=== PATIENT | female | born 1995 | race African-American/Black ===

== ENCOUNTER 2019-02-04 08:09 | Emergency (ER) | payer OTHER ==
[2019-02-04] MEDS ORDERED: LACTATED RINGERS SOLUTION 1000 ML INFUS.BAG IV ONE (08:54)
[2019-02-04] MEDS ORDERED: ONDANSETRON 4 MG/2 ML VIAL IVPUSH ONE (09:13)
[2019-02-04] MEDS ORDERED: FAMOTIDINE 20 MG/50 ML IVPB 20 MG/50 ML MG IVPB ONE ×2 (09:14→09:25)
[2019-02-04] MEDS ORDERED: ACETAMINOPHEN 325 MG TABLET (FP) PO ONE (09:15)
[2019-02-04] MEDS ORDERED: ONDANSETRON 4 MG/2 ML VIAL ONE (09:24)
[2019-02-04] MEDS ORDERED: ACETAMINOPHEN 325 MG TABLET (FP) ONE (09:24)
[2019-02-04 09:34] LABS: BASO % 0.1 % (0-2.0); EOS % 0.2 % (0-4.5); HEMATOCRIT 41.3 % (32.4-45.2); LYMPH % 2.5 % (8-40); MCH 25.5 pg (25.7-33.7); MCHC 31.6 g/dl (32.0-36.0); MEAN CELL VOLUME 80.9 fl (80-96); NEUT % 93.2 % (42.8-82.8); PLATELET COUNT 176 K/MM3 (134-434); RDW 14.7 % (11.6-15.6); WHITE BLOOD COUNT 11.2 K/mm3 (4.0-10.0)
--- NOTE | 2019-02-04 09:49 | PDOC ---
History of Present Illness <Lashell James - Last Filed: 02/04/19 09:52> - General History Source: Patient Exam Limitations: No Limitations - History of Present Illness Initial Comments: HPI: 23 y/o female presenting to [facility] ER complaining of upper abdominal pain with nausea, vomiting, and diarrhea since approx. 1 am this morning. Pt reports the pain starts in the epigastric region and radiates diffusely throughout the abdomen and to her R and L flanks. Multiple episodes of nonbloody emesis and nonbloody loose stools (similar to soft serve ice cream) with chills and diaphoresis. Denies dysuria, hematuria, or vaginal discharge. No sick contacts, recent travel, or recent antibiotic usage. H/o similar symptoms while traveling out of the country in [place]. Seen by a resort clinic. Treated symptomatically without imaging studies. Now undergoing outpatient GI workup by Dr. Martinez. Scheduled for U/S tomorrow and an EGD on 12 Feb 2019. LMP: 17 Jan 2019 Medical Hx: - Pt denies past medical history Surgical Hx: - Pt denies past surgical history Review of Systems: In addition to that documented in the HPI above, the additional ROS was obtained : Constitutional- Endorses chills. Denies fevers Head- Denies vision changes ENMT- Denies sore throat CV- Denies chest pain Resp- Denies SOB GI- Per HPI - Denies painful urination, hematuria, or vaginal discharge MSK- Denies recent trauma Skin- Denies new rashes Neuro- Denies new numbness or tingling or weakness Endocrine- Denies polyuria Heme- Denies bleeding or bruising Physical Examination: Vital signs and nursing notes reviewed. Constitutional- Well-developed, well-nourished adult female in no acute distress or obvious discomfort. Found semi-fowlers on hospital stretcher. Answered all questions appropriately and completely. Head- Normocephalic. No obvious external signs of trauma. Eyes- Sclerae white. Conjunctiva pink, moist, and not injected. Ears- Hearing grossly intact. Cardiovascular / Chest- Regular rate and regular rhythm. No murmur, rubs, clicks , or gallops. Peripheral pulses- radial pulses full. Respiratory- Breathing unlabored. Equal chest rise and fall. Clear to auscultation bilaterally. No stridor, no wheezing, no rhonchi. Gastrointestinal- abdomen is tender in epigastric region with grimace but no rebound or guarding. Discomfort in all four quadrants. Globally, abdomen is soft and nondistended. No hepatosplenemegaly. No pulsatile masses. No overlying skin lesions or obvious signs of trauma. Neuro- Alert and oriented x4. Moving all four extremities spontaneously. Skin- Warm, dry, and intact. Psych- Affect- appropriate. Mood- normal. Speech was non-labored, non- pressured. MDM: 23 y/o female presenting with upper abdominal pain with nausea, vomiting, and diarrhea x8 hrs. [place] abdomen. Afebrile. Vitals unremarkable for hypotension or tachycardia. Physical exam as described above. Labs reviewed and unremarkable for acute derangement. test negative. ROQ POCUS performed ; unremarkable for GB wall thickening, CBD dilation, or sonographic Arreguin's sign. Suspect likely acute gastroenteritis. Low suspicion for appendicitis, cholecystitis, pancreatitis, or other biliary pathology. Ordered Tylenol, Zofran , Pepcid, and LR IVFB. 04 Feb 2019 10:41 AM Pt reassessed. Reports the pain has somewhat improved. Repeat abdominal exam is unchanged from initial. No acute abdominal signs. Ordered Reglan and Maalox for further symptom management. 04 Feb 2019 12:04 PM Pt reassessed. Reports pain has continued to improve. No further episodes of vomiting. Continue to suspect viral gastroenteritis. Repeat vitals revealed downtrended temperature and HR. Discussed laboratory results and physical exam findings with pt. Answered all questions. Provided return precautions. pt expressed verbal understanding and agreement with plan to discharge home with outpatient follow up. Provided copies of todays results. Will prescribe a short course of PRN Reglan for symptom relief. Pt to f/u with Dr. Martinez tomorrow at previously scheduled clinic appointment. Yandel Carias M.D., PGY2 Emergency Medicine Resident <Yandel Carias - Last Filed: 02/04/19 12:09> - General Chief Complaint: Vomiting/Diarrhea Stated Complaint: ABDOMINAL PAIN, VOMITING Time Seen by Provider: 02/04/19 08:47 Past History <Lashell James - Last Filed: 02/04/19 09:52> - Past Medical History COPD: No - Psycho Social/Smoking Cessation Hx Smoking History: Never smoked Have you smoked in the past 12 months: No Hx Alcohol Use: No Drug/Substance Use Hx: No <Yandel Carias - Last Filed: 02/04/19 12:09> - Past Medical History Allergies/Adverse Reactions: Allergies Allergy/AdvReac Type Severity Reaction Status Date / Time No Known Allergies Allergy Verified 08/08/17 02:55 Home Medications: Ambulatory Orders Metoclopramide HCl [Reglan -] 10 mg PO BID PRN #14 tablet 02/04/19 *Physical Exam - Vital Signs Last Vital Signs Temp Pulse Resp BP Pulse Ox 100 F H 102 H 20 120/68 100 02/04/19 08:30 02/04/19 08:30 02/04/19 08:30 02/04/19 08:30 02/04/19 08:30 <Lashell James - Last Filed: 02/04/19 09:52> - Vital Signs Last Vital Signs Temp Pulse Resp BP Pulse Ox 100 F H 102 H 20 120/68 100 02/04/19 08:30 02/04/19 08:30 02/04/19 08:30 02/04/19 08:30 02/04/19 08:30 <Yandel Carias - Last Filed: 02/04/19 12:09> Procedures - Bedside Ultrasound Bedside Ultrasound: Gallbladder Remarks: 02/04/19 09:52 POCUS biliary exam: Indication: abdominal pain Views: gallbladder long and s hort axis, CBD Findings: no stones or GB wall thickening or pericholecystic fluid, normal CBD < 4mm for age. Neg sono murphys Impression: no acute findings. No cholelithiasis or cholecystitis. <Lashell James - Last Filed: 02/04/19 09:52> ED Treatment Course - LABORATORY CBC & Chemistry Diagram: 02/04/19 09:15 02/04/19 09:15 - ADDITIONAL ORDERS Additional order review: Laboratory Results 02/04/19 09:15 Lipase 102 02/04/19 09:15 RBC 5.10 MCV 80.9 MCHC 31.6 L RDW 14.7 MPV 11.0 Neutrophils % 93.2 H Lymphocytes % 2.5 L Monocytes % 4.0 Eosinophils % 0.2 Basophils % 0.1 - Medications Given in the ED: ED Medications Discontinued Medications Generic Name Dose Route Start Last Admin Trade Name Freq PRN Reason Stop Dose Admin Acetaminophen 650 mg 02/04/19 09:15 02/04/19 09:34 Tylenol - PO 02/04/19 09:16 650 mg ONCE ONE Administration Famotidine/Sodium Chloride 20 mg in 50 mls @ 100 mls/hr 02/04/19 09:14 09:34 Pepcid 20 Mg Premixed Ivpb - IVPB 02/04/19 09:43 100 mls/hr ONCE ONE Administration Lactated Ringer's 1,000 ml 02/04/19 08:54 02/04/19 09:21 Lactated Ringers Solution IV 02/04/19 08:55 1,000 ml ONCE ONE Administration Ondansetron HCl 4 mg 02/04/19 09:13 02/04/19 09:34 Zofran Injection IVPUSH 02/04/19 09:14 4 mg ONCE ONE Administration <Lashell James - Last Filed: 02/04/19 09:52> - LABORATORY CBC & Chemistry Diagram: 02/04/19 09:15 02/04/19 09:15 - ADDITIONAL ORDERS Additional order review: Laboratory Results 02/04/19 09:15 Lipase 102 02/04/19 09:15 RBC 5.10 MCV 80.9 MCHC 31.6 L RDW 14.7 MPV 11.0 Neutrophils % 93.2 H Lymphocytes % 2.5 L Monocytes % 4.0 Eosinophils % 0.2 Basophils % 0.1 - Medications Given in the ED: ED Medications Discontinued Medications Generic Name Dose Route Start Last Admin Trade Name Molly PRN Reason Stop Dose Admin Acetaminophen 650 mg 02/04/19 09:15 02/04/19 09:34 Tylenol - PO 02/04/19 09:16 650 mg ONCE ONE Administration Famotidine/Sodium Chloride 20 mg in 50 mls @ 100 mls/hr 02/04/19 09:14 09:34 Pepcid 20 Mg Premixed Ivpb - IVPB 02/04/19 09:43 100 mls/hr ONCE ONE Administration Lactated Ringer's 1,000 ml 02/04/19 08:54 02/04/19 09:21 Lactated Ringers Solution IV 02/04/19 08:55 1,000 ml ONCE ONE Administration Ondansetron HCl 4 mg 02/04/19 09:13 02/04/19 09:34 Zofran Injection IVPUSH 02/04/19 09:14 4 mg ONCE ONE Administration <Yandel Carias - Last Filed: 02/04/19 12:09> Discharge - Discharge Information Problems reviewed: Yes <Lashell James - Last Filed: 02/04/19 09:52> - Discharge Information Problems reviewed: Yes - Admission No <Yandel Carias - Last Filed: 02/04/19 12:09> - Discharge Information Clinical Impression/Diagnosis: Nausea vomiting and diarrhea Abdominal pain Qualifiers: Abdominal location: upper abdomen, unspecified Qualified Code(s): R10.10 - Upper abdominal pain, unspecified Condition: Improved Disposition: HOME - Additional Discharge Information Prescriptions: Metoclopramide HCl [Reglan -] 10 mg PO BID PRN #14 tablet PRN Reason: Nausea,Vomiting,Abdominal Pain - Follow up/Referral Referrals: Rachel Li MD [Primary Care Provider] - Deonna Martinez DO [Staff Physician] - - Patient Discharge Instructions Patient Printed Discharge Instructions: DI for Viral Gastroenteritis -- Adult Additional Instructions: Please return to the emergency department immediately should you feel worse in any way or have any of the following symptoms: increasing or different abdominal pain, persistent vomiting, fevers or shaking chills. Please return to the emergency department for a recheck in 8-12 hours if the pain is persistent or worse so we can re-evaluate you and ensure that you are not developing a problem that would require surgery or hospitalization. Please continue to drink fluids (water, Gatorade, etc) to stay hydrated. Mix sugary drinks with water as the sugar can further dehydrate you. You can try and eat a small bland meal (crackers, etc) after you have stopped vomiting for 12 hours. I have sent a prescription for Reglan to your pharmacy. Take as directed on the package insert. Do not exceed the recommended dosage. All of your results from todays visit are attached to this packet. Take it to your doctors appointment so they can be reviewed. Print Language: THAI - Post Discharge Activity Work/Back to School Note: Back to Work
--- NOTE | 2019-02-04 09:52 | PDOC ---
Attending Attestation - Resident Resident Name: CariasYandel - ED Attending Attestation I have performed the following: I have examined & evaluated the patient, The case was reviewed & discussed with the resident, I agree w/resident's findings & plan - HPI HPI: 02/04/19 09:51 23 YOF with no sig medical history presenting with epigastric/upper abdominal pain, n/v/d since 1AM No suspicious food intake; ate rice/beans and pork for lunch, and then she ate dinner No recent abx No recent travel Similar pain about 1 year ago, when she in resort in [facility] 01/17/19 Planned for sono abdomen tomorrow with Dr Martinez, as well as future scope. Scheduled for EGD on 12 Feb 2019. 02/04/19 12:21 - Physicial Exam PE: 02/04/19 09:51 Agree with the resident's HPI and PE as documented in the electronic medical record. NAD, well appearing, EOMI, PERRL, nl conjunctiva, anicteric; neck supple. lungs clear, RRR, abdomen soft +epigastric TTP (mild); no [place] or Mcburney s point tenderness. no rebound, guarding. Back nontender. HOLDER x4, no focal neuro deficits. No peripheral edema. normal color for ethnicity, WWP. - Medical Decision Making 02/04/19 09:51 Vital Signs Temp Pulse Resp BP Pulse Ox 100 F H 102 H 20 120/68 100 02/04/19 08:30 02/04/19 08:30 02/04/19 08:30 02/04/19 08:30 02/04/19 08:30 vitals with LGF, no fever, mild tachy in low 100s, likely from her pain. normotensive. will recheck VS DDx abdominal pain: Renal colic, biliary colic, metabolic/electrolyte derangements. GERD, PUD, esophageal spasm, pancreatitis, hepatitis, constipation , colitis, gastroenteritis, cholecystitis, hernia, appendicitis, diverticulitis , mesenteric ischemia. msk strain, mesenteric adenitis, psoas abscess. No lower pelvic symptoms to suggest pelvic etiology no RLQ pain to suggest appy at this time. POCUS biliary exam: Indication: abdominal pain Views: gallbladder long and s hort axis, CBD Findings: no stones or GB wall thickening or pericholecystic fluid, normal CBD < 4mm for age. Neg sono murphys Impression: no acute findings. No cholelithiasis or cholecystitis. Abdomen Reassessment: The patient appears comfortable and states that pain is improved. Given medications zofran/IVF, pepcid, tylenol with some clinical improvement. additional maalox/reglan, and reassess. Tolerating oral intake. Vital signs reviewed and are normal. Labs unremarkable, neg preg test. No UTI sx, defer testing. Lipase normal. Mild leukocytosis of 11K, LFTs wnl. On repeat physical exam, the abdomen is soft and nontender, no suggestive findings for acute abdominal process at this time. Repeat vital signs are within normal limits, no fevers, no tachycardia, improved. All diagnostics tests reviewed and discussed with the patient. The patient was able to tolerate oral intake. The patient was advised that even though there is no evidence of a surgical emergency at this time, sometimes this is not visible on bedside GB ultrasound or in the labs early in a disease course and that if there is additional pain they are to return for repeat evaluation. The patient stated understanding of this, has decision making capacity and is discharged in stable condition. The patient was instructed to return to the emergency department for re-evaluation in 8-12 hours and sooner if they feel worse in any way.particularly over RLQ or fevers/dehydration. has plans for outpatient eval with Dr Martinez, abdomen sono tomorrow. and ultimate scoping. avoid food triggers, such as fatty foods/spicy foods, as likely trigger of presentation. instructed pt this could also be viral gastroenteritis/ given sx of n/v/d and possible food triggers. 02/04/19 11:50
[2019-02-04 09:59] LABS: ALBUMIN 4.1 g/dl (3.4-5.0); BILIRUBIN,TOTAL 0.6 mg/dL (0.2-1); BLOOD UREA NITROGEN 16.2 mg/dL (7-18); CALCIUM 8.9 mg/dL (8.5-10.1); CREATININE 0.8 mg/dL (0.55-1.3); POTASSIUM 4.1 mmol/L (3.5-5.1); TOT PROT 7.8 g/dl (6.4-8.2)
[2019-02-04] MEDS ORDERED: METOCLOPRAMIDE HCL INJECTION 10 MG/2 ML VIAL IVPUSH ONE (10:42)
[2019-02-04] MEDS ORDERED: MAG HYDROX/AL HYDROX/SIMETH -MYLANTA- ORAL SUSPENSION PO ONE (10:42)
[2019-02-04 11:01] LABS: ANISOCYTOSIS 0; MACROCYTOSIS 0; PLATELET ESTIMATE NORMAL
[2019-02-04] MEDS ORDERED: METOCLOPRAMIDE HCL INJECTION 10 MG/2 ML VIAL ONE (11:03)
[2019-02-04] MEDS ORDERED: MAG HYDROX/AL HYDROX/SIMETH 30 ML UNIT-DOSE CUP ONE (11:03)
[2019-02-04 11:43] VITALS: BP 106/60; PULSE 70; TEMP 98.8
== END 2019-02-04 12:15 | disposition home or self-care (01) ==
LOC: JER 08:09
PROC: 3E033GC Introduction of Other Therapeutic Substance into Peripheral Vein, Percutaneous Approach (ICD-10-PCS; principal; 2019-02-04)
PROC: 3E033GC Introduction of Other Therapeutic Substance into Peripheral Vein, Percutaneous Approach (ICD-10-PCS; 2019-02-04)
PROC: 3E033GC Introduction of Other Therapeutic Substance into Peripheral Vein, Percutaneous Approach (ICD-10-PCS; 2019-02-04)
PROC: BF42ZZZ Ultrasonography of Gallbladder (ICD-10-PCS; 2019-02-04)
DX: R10.13 Epigastric pain (principal); R11.2 Nausea with vomiting, unspecified
CPT/HCPCS: 36415; 76705-TC; 80053; 83690; 84703; 85025; 99282-25

== ENCOUNTER 2019-02-16 09:25 | Day surgery (SDC) | payer OTHER ==
[2019-02-07 13:22] VITALS: BMI 18.3
[2019-02-16 09:40] VITALS: TEMP 99.4
[2019-02-16] MEDS ORDERED: PROPOFOL 20 ML ONE ×2 (09:53)
[2019-02-16 11:07] VITALS: BP 121/61; PULSE 89
--- NOTE | 2019-02-18 16:55 | PATH ---
Surgical Pathology Report Patient Name: LANI MCFARLAND [facility]. Rec. #: [id number] /Age/Gender: 1995 (Age: 23) / F Account: [id number] Location: [facility] Taken: 02/16/2019 Received: 02/16/2019 Reported: 02/18/2019 Physicians: Deonna Martinez M.D. Specimen(s) Received A: SECOND PORTION DUODENUM B: GSATRIC ANTRUM C: GE JUNCTION Clinical History Dyspepsia Postoperative diagnosis: Gastritis, hiatal hernia, small gastric ulcer Final Diagnosis A. SECOND PORTION OF DUODENUM, BIOPSY: DUODENAL MUCOSA WITH NO SIGNIFICANT PATHOLOGIC CHANGE. NO HISTOLOGIC EVIDENCE OF INTRAEPITHELIAL LYMPHOCYTOSIS. B. GASTRIC ANTRUM, BIOPSY: GASTRIC MUCOSA WITH CHRONIC GASTRITIS AND REACTIVE GASTROPATHY. IMMUNOSTAIN FOR H. PYLORI IS NEGATIVE. NEGATIVE FOR INTESTINAL METAPLASIA. C. GE JUNCTION, BIOPSY: COLUMNAR (GASTRIC) MUCOSA WITH MILD CHRONIC INFLAMMATION. NO SQUAMOUS EPITHELIUM PRESENT. NEGATIVE FOR INTESTINAL METAPLASIA. Electronically Signed Adrianna Null M.D. Gross Description A. Received in formalin, labeled "biopsy second portion of duodenum" is a mack, irregular portion of soft tissue measuring 0.3 cm. in greatest dimension. The specimen is submitted in toto in one cassette. B. Received in formalin, labeled "biopsy gastric antrum" is a mack, irregular portion of soft tissue measuring 0.2 cm. in greatest dimension. The specimen is submitted in toto in one cassette. C. Received in formalin, labeled "biopsy GE junction" is a mack, irregular portion of soft tissue measuring 0.3 cm. in greatest dimension. The specimen is submitted in toto in one cassette. /02/17/2019 [facility]02/17/2019
== END 2019-02-16 11:00 | disposition home or self-care (01) ==
LOC: FASU-ENDO 09:25
PROVIDERS: ATTEND Internal Medicine Gastroenterology
PROC: 0DB68ZX Excision of Stomach, Via Natural or Artificial Opening Endoscopic, Diagnostic (ICD-10-PCS; 2019-02-16)
PROC: 0DB48ZX Excision of Esophagogastric Junction, Via Natural or Artificial Opening Endoscopic, Diagnostic (ICD-10-PCS; 2019-02-16)
PROC: 0DB98ZX Excision of Duodenum, Via Natural or Artificial Opening Endoscopic, Diagnostic (ICD-10-PCS; principal; 2019-02-16 10:18)
DX: K25.9 Gastric ulcer, unspecified as acute or chronic, without hemorrhage or perforation (principal); K44.9 Diaphragmatic hernia without obstruction or gangrene; K29.50 Unspecified chronic gastritis without bleeding; K31.9 Disease of stomach and duodenum, unspecified; K20.9 Esophagitis, unspecified; R10.13 Epigastric pain
CPT/HCPCS: 84703; 88305-TC; 88342-TC

== ENCOUNTER 2019-04-13 09:08 | Day surgery (SDC) | payer OTHER ==
[2019-04-08 10:27] VITALS: BMI 17.8
[2019-04-13 09:26] VITALS: PULSE 80
[2019-04-13] MEDS ORDERED: PROPOFOL 20 ML ONE ×2 (09:42)
[2019-04-13] MEDS ORDERED: LIDOCAINE HCL/PF 2% SDV 5ML VIAL ONE (09:42)
[2019-04-13 10:57] VITALS: BP 111/58
[2019-04-13 11:13] VITALS: TEMP 98
--- NOTE | 2019-04-18 10:51 | PATH ---
Surgical Pathology Report Patient Name: LANI MCFARLAND [facility]. Rec. #: [id number] /Age/Gender: 1995 (Age: 23) / F Account: [id number] Location: [facility] Taken: 04/13/2019 Received: 04/13/2019 Reported: 04/18/2019 Physicians: Deonna Martinez M.D. Specimen(s) Received A: BX GASTRIC ANTRUM B: BX GASTRIC POLYP Clinical History Followup for gastric ulcer Postoperative diagnosis: Hiatal hernia, gastric polyp, healed ulcer Final Diagnosis A. GASTRIC ANTRUM, BIOPSY: MILD CHRONIC GASTRITIS WITH FEATURES OF REACTIVE GASTROPATHY. IMMUNOSTAIN IS NEGATIVE FOR H. PYLORI ORGANISMS. B. GASTRIC POLYP, BIOPSY: MILD CHRONIC GASTRITIS. (SEE NOTE). IMMUNOSTAIN IS NEGATIVE FOR H. PYLORI ORGANISMS. Note: No definitive polyp is identified. Electronically Signed Xiao Figueroa M.D. Gross Description A. Received in formalin, labeled "gastric antrum" is a mack, irregular portion of soft tissue measuring 0.3 cm. in greatest dimension. The specimen is submitted in toto in one cassette. B. Received in formalin, labeled "biopsy gastric polyp" are 2 mack, irregular portions of soft tissue averaging 0.2 cm. in greatest dimension. The specimens are submitted in toto in one cassette. 04/14/2019 [facility]04/14/2019
== END 2019-04-13 11:28 | disposition home or self-care (01) ==
LOC: FASU-ENDO 09:08
PROVIDERS: ATTEND Internal Medicine Gastroenterology
PROC: 0DB68ZX Excision of Stomach, Via Natural or Artificial Opening Endoscopic, Diagnostic (ICD-10-PCS; principal; 2019-04-13 10:19)
DX: Z13.810 Encounter for screening for upper gastrointestinal disorder (principal); K29.50 Unspecified chronic gastritis without bleeding; K31.9 Disease of stomach and duodenum, unspecified; K31.7 Polyp of stomach and duodenum; K44.9 Diaphragmatic hernia without obstruction or gangrene
CPT/HCPCS: 84703; 88305-TC; 88342-TC

== ENCOUNTER 2021-01-11 14:16 | Emergency (ER) | payer OTHER ==
[2021-01-11 15:25] VITALS: BP 134/85; PULSE 69; TEMP 98.3; BMI 19.5
[2021-01-11 17:28] LABS: HEMOGLOBIN 13.1 GM/dL (10.7-15.3); LYMPH % 20.7 % (8-40); WHITE BLOOD COUNT 7.1 K/mm3 (4.0-10.0)
[2021-01-11 17:37] LABS: BASO % 0.5 % (0-2.0); EOS % 0.5 % (0-4.5); MCH 25.6 pg (25.7-33.7); MCHC 31.9 g/dl (32.0-36.0); MEAN CELL VOLUME 80.2 fl (80-96); MEAN PLT VOLUME 10.9 fl (7.5-11.1); MONO % 8.6 % (3.8-10.2); NEUT % 69.7 % (42.8-82.8); PLATELET COUNT 166 10^3/uL (134-434); RBC 5.12 M/mm3 (3.60-5.2); RDW 15.1 % (11.6-15.6)
[2021-01-11 17:45] LABS: CALCIUM 10.1 mg/dL (8.5-10.1)
[2021-01-11 17:46] LABS: ALBUMIN 4.6 g/dl (3.4-5.0); BLOOD UREA NITROGEN 11.6 mg/dL (7-18)
[2021-01-11 17:49] LABS: CREATININE 0.8 mg/dL (0.55-1.3)
[2021-01-11 17:51] LABS: BILIRUBIN,TOTAL 0.4 mg/dL (0.2-1); TOT PROT 8.8 g/dl (6.4-8.2)
[2021-01-11 19:46] LABS: EPI CELLS 6 /uL (0-25.1); HYALINE CASTS 0 /uL (0-3.1); URINE APPEARANCE CLEAR; URINE BACTERIA 523 /uL (0-1359); URINE BILIRUBIN NEGATIVE (NEGATIVE); URINE COLOR YELLOW; URINE GLUCOSE (UA) NEGATIVE (NEGATIVE); URINE KETONE 2+ (NEGATIVE); URINE LEUK ESTERASE NEGATIVE (NEGATIVE); URINE NITRITE NEGATIVE (NEGATIVE); URINE PROTEIN NEGATIVE (NEGATIVE); URINE RBC 21 /uL (0-23.9); URINE UROBILINOGEN 0.2 mg/dL (0.2-1.0); URINE WBC 4 /uL (0-25.8)
== END 2021-01-11 19:56 | disposition home or self-care (01) ==
LOC: JER 14:16
DX: O20.0 Threatened abortion (principal); Z3A.01 Less than 8 weeks gestation of pregnancy
CPT/HCPCS: 36415; 76817-TC; 80053; 81003; 84702; 85025; 86850; 86900; 86901; 87086; 99284-25

== ENCOUNTER 2021-01-16 08:22 | Emergency (ER) | payer OTHER ==
[2021-01-16 09:00] VITALS: BP 117/69; PULSE 75; TEMP 98.6; BMI 16.2
== END 2021-01-16 14:10 | disposition home or self-care (01) ==
LOC: JER 08:22
DX: O02.1 Missed abortion (principal); Z3A.00 Weeks of gestation of pregnancy not specified
CPT/HCPCS: 36415; 76817-TC; 84702; 99284-25